=== PATIENT | female | born 1955 | race Caucasian/White ===

== ENCOUNTER 2020-01-21 08:25 | Inpatient (IN) ==
--- NOTE | 2019-12-18 14:32 | PAT Medication Instructions ---
Medication Instructions Date of Service December 18, 2019 Home Medications albuterol 90 mcg INHALATION QID PRN aspirin 81 mg PO QAM atorvastatin 40 mg PO QAM citalopram 40 mg PO QAM famotidine 40 mg PO QAM multivitamin 1 cap PO QAM ASK your prescriber and surgeon aspirin 81 mg PO QAM DO NOT take the morning of surgery multivitamin 1 cap PO QAM Take morning of surgery With a small sip of water, OTHERWISE NOTHING TO EAT OR DRINK AFTER MIDNIGHT: albuterol 90 mcg INHALATION QID PRN (use if needed; please bring with you to hospital day of surgery if possible) atorvastatin 40 mg PO QAM citalopram 40 mg PO QAM famotidine 40 mg PO QAM Take evening before surgery albuterol 90 mcg INHALATION QID PRN (if needed) Other Notes If you have any questions please call us at [phone] or [phone] or [phone] or [phone]
--- NOTE | 2019-12-19 12:58 | Anesthesiology Consultation ---
Date of Service December 19, 2019 Assessment & Plan (1) Encounter for pre-operative examination: - Patient scheduled to see cardiology prior to surgery. Awaiting cardiology office visit note and available cardiac testing (Dr. Joshi) - Per assessment on 12/18: Travel screen- Lives in [place]. Travel to [facility]. No known COVID-19 positive contacts or current COVID-19 related symptoms. Surgeon arranging preop COVID testing (at [facility]). Awaiting results. - ASA instructions per surgeon/prescriber. Chart Review Chart Review: Patient seen in Pre Admission Testing Teaching & Discussion Pre-Anesthesia Teaching/Discussion Notes: Instructed NPO after midnight before surgery,except medications with 15 cc of water. Medication instructions provid ed according to the PAT guidelines. History Surgery Operation Date: 01/21/20 11:20 Proposed Procedures p Left Reverse Total Shoulder Arthroplasty - Venkatesh Espinoza MD Height/Weight Height: 4 ft 11.75 in Weight: 113.3 kg Allergies Allergy/AdvReac Type Severity Reaction Status Date / Time No Known Allergies Allergy Verified 12/18/19 12:19 Medications Home Medications Medication Instructions Recorded Confirmed Last Taken albuterol 90 mcg INHALATION QID PRN 12/18/19 12/18/19 Unknown aspirin 81 mg PO QAM 12/18/19 12/18/19 Unknown atorvastatin 40 mg PO QAM 12/18/19 12/18/19 Unknown citalopram 40 mg PO QAM 12/18/19 12/18/19 Unknown famotidine 40 mg PO QAM 12/18/19 12/18/19 Unknown multivitamin 1 cap PO QAM 12/18/19 12/18/19 Unknown Past Medical History Medical History Asthma stable CAD (coronary artery disease) non-obstructive GERD (gastroesophageal reflux disease) controlled Hyperlipidemia Morbid obesity Osteoarthritis Sleep apnea CPAP Exercise / Class Metabolic Activity III < 4 Walking/Shop/Light housework Past Surgical History Surgical History History of cardiac cath 2018- no stents History of carpal tunnel release of both wrists History of knee replacement procedure of left knee History of knee replacement procedure of right knee Hx laparoscopic cholecystectomy Hx of colonoscopy Hx of hysterectomy Hx of rotator cuff surgery right Past Anesthesia History No Hx of Anesthesia Complications and No Family Hx of Anesthesia Complications History of PONV No Hx of PONV and No Hx of Motion Sickness Social History Smoking Status: Former smoker Do You Dip or Chew Tobacco: No Smoking End Date: Quit 20 years ago Hx Alcohol Use: No Hx Substance Use: No substance use type: does not use Review of Systems Patient denies chest pain, shortness of breath, fever, chills, cough, wheezing, palpitations. Physical Exam Vital Signs VITALS BP 128/79 P 65 TEMP 98.1 SP02 94%RA RESP 16 PHYSICAL Full neck and c-spine range of motion. Full TMJ range of motion. TMD 3.5 finger breaths Mallampati Score 2 Dentition: intact, + crowns (sides) Lungs: clear throughout to auscultation Cardiac: regular rate and rhythm, no murmurs noted Spine: normal Carotid arteries: negative bruit Extremities: no edema Short neck Testing Laboratory Results 12/19/19 13:10 12/19/19 13:10 PT 10.4 Seconds (9.0-12.0) 12/19/19 13:10 INR 1.0 (0.9-1.1) 12/19/19 13:10 APTT 27.2 Seconds (21.0-31.0) 12/19/19 13:10 Hemoglobin A1c 6.1 % (4.5-5.6) H 12/19/19 13:10 Urine Color Yellow 12/19/19 13:10 Urine Appearance Clear (Clear) 12/19/19 13:10 Urine pH 5.5 (4.5-7.5) 12/19/19 13:10 Ur Specific Leupp 1.018 (1.000-1.030) 12/19/19 13:10 Urine Protein Negative (Negative) 12/19/19 13:10 Urine Glucose (UA) Negative (Negative) 12/19/19 13:10 Urine Ketones Negative (Negative) 12/19/19 13:10 Urine Nitrite Negative (Negative) 12/19/19 13:10 Ur Leukocyte Esterase Trace (Negative) H 12/19/19 13:10 Urine WBC (Auto) 1-5 /hpf (0-5) 12/19/19 13:10 Urine RBC (Auto) 0-4 /hpf (0-4) 12/19/19 13:10 U Hyaline Cast (Auto) 0 /lpf (0-5) 12/19/19 13:10 U Epithel Cells (Auto) >30 /lpf (0-5) H 12/19/19 13:10 Urine Bacteria (Auto) Negative (Negative) 12/19/19 13:10 Blood Type O Positive 12/19/19 13:10 Antibody Screen NEGATIVE 12/19/19 13:10 Electrocardiogram Date: 12/19/19 NSR at 67bpm. Chest X-Ray Date: 12/19/19 FINDINGS: PA and lateral chest radiographs are obtained. No prior studies are available for comparison at the time of dictation. The cardiomediastinal silhouette is unremarkable. The lungs and pleural spaces are clear. There is no pneumothorax. The skeletal structures are osteopenic. The bony thorax appears intact. Degenerative change is noted in the thoracic spine. Cholecystectomy clips are seen in the right upper quadrant. IMPRESSION: No active disease in the chest.
--- NOTE | 2019-12-19 14:20 | XRay Report ---
TWO VIEW CHEST CLINICAL HISTORY: Preoperative examination. FINDINGS: PA and lateral chest radiographs are obtained. No prior studies are available for compariso n at the time of dictation. The cardiomediastinal silhouette is unremarkable. The lungs and pleural spaces are clear. There is no pneumothorax. The skeletal structures are osteopenic. The bony thorax appears intact. Degenerative change is noted in the thoracic spine. Cholecystectomy clips are seen in the right upper quadrant. IMPRESSION: No active disease in the chest. ACT 112: Negative or not required by law. Electronically signed by: Manoj Franco M.D. 12/19/2019 2:19 PM
--- NOTE | 2019-12-19 14:34 | Electrocardiogram Report ---
Test Reason : Blood Pressure : / mmHG Vent. Rate : 067 BPM Atrial Rate : 067 BPM P-R Int : 146 ms QRS Dur : 086 ms QT Int : 460 ms P-R-T Axes : 078 005 067 degrees QTc Int : 486 ms Normal sinus rhythm Normal ECG When compared with ECG of 18-MAY-2006 17:42, T wave amplitude has decreased in Lateral leads Confirmed by Seven Taylor ([id number]) on 12/19/2019 2:34:01 PM Referred By: Venkatesh Espinoza Confirmed By:Javier Taylor
[2019-12-19 15:21] LABS: Basophils # (auto) 0.02 K/uL (0-0.2); Basophils % (auto) 0.2 %; Eosinophils # (auto) 0.11 K/uL (0-0.5); Eosinophils % (auto) 1.2 %; Hematocrit (blood only) 41.5 % (37-47); Hemoglobin 13.4 g/dL (12.0-16.0); Immature Granulocytes # (auto) 0.01 K/uL (0.00-0.02); Immature Granulocytes % (auto) 0.1 %; Lymphocytes # (auto) 2.19 K/uL (1.2-3.4); Lymphocytes % (auto) 23.3 %; Mean Corpuscular Hemoglobin 27.9 pg (25-34); Mean Corpuscular Hgb Conc 32.3 g/dL (32-36); Mean Corpuscular Volume 86.5 fL (80-100); Mean Platelet Volume 11.7 fL (7.4-10.4); Monocytes # (auto) 0.33 K/uL (0.11-0.59); Monocytes % (auto) 3.5 %; Neutrophils # (auto) 6.74 K/uL (1.4-6.5); Neutrophils % (auto) 71.7 %; Platelet Count 256 K/uL (130-400); RDW Coefficient of Variation 14.1 % (11.5-14.5); RDW Standard Deviation 44.3 fL (36.4-46.3)
[2019-12-19 15:29] LABS: Appearance Urine Clear (Clear); Bacteria Urine Automated Negative (Negative); Bilirubin Urine Negative (Negative); Blood Urine Negative (Negative); Cast Urine Automated 0 /lpf (0-5); Color Urine Yellow; Epithelial Cell Urine Auto >30 /lpf (0-5); Glucose Urine UA Negative (Negative); Ketones Urine Negative (Negative); Leukocyte Esterase Urine Trace (Negative); Nitrite Urine Negative (Negative); Protein Urine Negative (Negative); RBC Urine Automated 0-4 /hpf (0-4); Specific Gravity Urine 1.018 (1.000-1.030); Urobilinogen Urine Negative (Negative); pH Urine 5.5 (4.5-7.5)
[2019-12-19 15:41] LABS: Partial Thromboplastin Time 27.2 Seconds (21.0-31.0); Prothrombin Time 10.4 Seconds (9.0-12.0)
[2019-12-19 16:12] LABS: Albumin Level 3.4 gm/dl (3.4-5.0); BUN Creatinine Ratio 18.5 (10-20); Calcium 8.9 mg/dl (8.5-10.1); Creatinine Clr Calc Pharmacy 80.9 ml/min; Est GFR (African American) 91.8; Est GFR (Non-African American) 79.2; Potassium 3.4 mmol/L (3.5-5.1)
[2019-12-20 05:46] LABS: Estimated Average Glucose 128 mg/dl; Hemoglobin A1C 6.1 % (4.5-5.6)
--- NOTE | 2020-01-20 20:52 | History and Physical Report ---
DATE OF ADMISSION: 01/21/2020 CHIEF COMPLAINT: Chronic left shoulder pain and weakness. HISTORY OF PRESENT ILLNESS: This is a 64-year-old female patient of Dr. Espinoza'duyen complaining of chronic left shoulder pain and weakness, longstanding, now progressively getting worse. The patient has failed conservative treatment and has been diagnosed with rotator cuff arthropathy. She has failed conservative treatment and wished to proceed with a left reverse total shoulder arthroplasty. PAST MEDICAL HISTORY: Hypercholesterolemia, irregular heartbeat, asthma, sleep apnea with the use of CPAP, osteoarthritis, acid reflux, hiatal hernia, obesity. SOCIAL HISTORY: Nonsmoker, nondrinker. FAMILY HISTORY: Noncontributory. REVIEW OF SYSTEMS: Chronic left shoulder pain and weakness. Otherwise, denies any shortness of breath, chest pain, nausea, vomiting or any other joint complaints. PAST SURGICAL HISTORY: Gallbladder, bilateral knee replacements, bilateral carpal tunnel, hysterectomy, right shoulder and heart catheterization. MEDICATIONS: 1. Multivitamin daily. 2. Citalopram 40 mg daily. 3. Famotidine 20 mg twice daily. 4. Atorvastatin 20 mg daily. 5. Aspirin 81 mg daily. ALLERGIES: No known drug allergies. PHYSICAL EXAMINATION: GENERAL: Well-developed, well-nourished 64-year-old female in no acute distress. She is alert and oriented x3 and pleasant. HEENT: Normocephalic, atraumatic. Extraocular motions are intact. Pupils are equal and reactive to light. HEART: Regular rate and rhythm, no murmurs. LUNGS: Clear. ABDOMEN: Soft, nontender, bowel sounds present. EXTREMITIES: Left shoulder has full range of motion with pain. She has crepitation. She has 4/5 strength. She has positive impingement maneuvering. Neurologically and neurovascularly, she is intact in her left upper extremity. DIAGNOSIS: Left rotator cuff arthropathy, hypertension, irregular heartbeat, asthma, sleep apnea with the use of CPAP, osteoarthritis, acid reflux, hiatal hernia, obesity. PLAN: The patient was advised of her diagnosis, indications, risks, benefits, post op course have all been reviewed The patient wished to proceed with a left reverse total shoulder arthroplasty. Necessary consent forms, preoperative testing and clearances will be obtained. [facility]
[~2020-01-21 08:25] MED LIST: ACETAMINOPHEN 500 MG TAB PO SCH; BUPIVACAINE/EPINEPHRINE 0.25% 1:200,000 30 ML VIAL ONE; CeleBREX 200 MG CAP PO SCH; DEXAMETHASONE SOD INJ 4 MG/ML VIAL ONE; FAMOTIDINE 20 MG TAB PO SCH; GABAPENTIN 300 MG CAP PO SCH; LIDOCAINE HCL 2% 2 ML VIAL/AMP(20MG/ML) INFIL ONE; LR 15ML/HR IV SCH; METOCLOPRAMIDE HCL 10 MG TABLET PO SCH; MIDAZOLAM HCL 1 MG/ML 2ML VIAL ONE; ONDANSETRON INJ 2 MG/ML 2 ML VIAL ONE; PROPOFOL IV EMULSION 10 MG/ML 20 ML VIAL IV ONE; ROCURONIUM BROMIDE 10 MG/ML 5 ML VIAL IV ONE; ceFAZolin 2000MG 2,000 MG/15 ML SYR IV SCH; dexAMETHasone 4 MG TAB PO SCH; fentaNYL citrate 100 MCG/2 ML VIAL ONE
--- OUTSIDE RECORDS SUMMARY | 2020-01-21 08:36 | External Medical Summary | Continuity of Care Document ---
:1955 Author Name Ron Campos Address Unavailable Unavailable , Care Team Providers Name Role Phone Soledad Campos Unavailable [email or web address] Active medical history not documented Allergies and Adverse Reactions Allergy history not documented Medications Medications not documented Procedures Procedures not documented Immunizations Immunizations not documented Plan of Treatment Planned Observations Planned Goals not documented Results No Known Results Results not documented
[2020-01-21] MEDS ORDERED: BACITRACIN INJ 50,000 UNIT VIAL ONE (09:28)
[2020-01-21] MEDS ORDERED: ePHEDrine sulfate 50 MG/ML AMP IV PRN (09:51)
[2020-01-21] MEDS ORDERED: ATROPINE SULFATE 0.1 MG/ML 10ML SYR IV PRN (09:51)
[2020-01-21] MEDS ORDERED: fentaNYL citrate 100 MCG/2 ML VIAL IV PRN (09:51)
[2020-01-21] MEDS ORDERED: HYDROmorphone INJ 2 MG/ML SYR/VIAL IV PRN (09:51)
[2020-01-21] MEDS ORDERED: ONDANSETRON INJ 2 MG/ML 2 ML VIAL IV PRN ×2 (09:51→14:47)
--- NOTE | 2020-01-21 10:14 | History & Physical Bridge Note ---
Date of Service January 21, 2020 History & Physical Bridge Note I have examined the patient, reviewed the History & Physical and in the interval since the performance of the History & Physical I have noted the following changes of clinical significance: no changes noted
[2020-01-21] MEDS ORDERED: GLYCOPYRROLATE 0.2 MG/ML VIAL ONE ×2 (12:31→13:06)
[2020-01-21] MEDS ORDERED: ePHEDrine sulfate 50 MG/ML SYR ONE (12:31)
[2020-01-21] MEDS ORDERED: NEOSTIGMINE METHYLSULFATE 5 MG/5 ML SYR ONE (12:31)
--- NOTE | 2020-01-21 13:10 | Operative Report ---
Post Operative Report Pre & Post Diagnosis Operation Date: 01/21/20 10:20 Pre-Op Diagnosis: Left Shoulder Rotator Cuff Arthropathy, Chronic Rotator Cuff Tear, morbid obesity BMI 47.7 Post-Op Diagnosis: Left Shoulder Rotator Cuff Arthropathy, Chronic Rotator Cuff Tear, biceps tendinopathy chronic biceps tenosynovitis, subscapularis tendinopathy chronic supraspinatus tendon tear, morbid obesity BMI 47.7 I identified the patient and participated in the time-out.: Yes Procedure Operation Date: 01/21/20 10:20 Actual Procedures p Left Reverse Total Shoulder Arthroplasty, Biceps Tenodesis(Left), increased difficulty morbid obesity BMI 47.7- Venkatesh Espinoza MD Surgeon Venkatesh Espinoza MD Plumber'S Assistant AMY Avery Estimated Blood Loss 175 Findings Consistent with Post-Op Diagnosis Specimens Humeral head Drains 2 Hemovac Anesthesia Type General Regional Complications none Disposition Accompanied Patient To Recovery: No Disposition: Recovery Room Indications 64-year-old female chronic left shoulder pain failed conservative management. MRI demonstrates large retracted rotator cuff tear supraspinatus supraspinatus with atrophy with subscapularis tendinopathy Description of Procedure The patient was taken to the operating room and anesthetized under regional block and general anesthetic. The patient was positioned on the operating table in a 30 beachchair position with a towel roll under the medial border of the left scapula. The arm was draped free to be able to manipulate the shoulder as needed. The left upper extremity was prepped and draped in usual sterile fashion. Exam demonstrated morbidly obese patient with obese arm excess of fat around the arm area. Range of motion 90 degrees abduction forward elevation 160 degrees and rotation 40 degrees external rotation 60 degrees. An anterior deltopectoral approach was performed. A longitudinal incision was made in the deltopectoral interval. The skin was incised sharply. Subcutaneous flaps were elevated off the fascia. The cephalic vein was dissected out and retracted lateral with the deltoid. The clavipectoral fascia was divided at the lateral margin of the conjoined tendon and extended up to the CA ligament. The following findings were noted: There was thinning of the subscapularis tendon but was still intact. There was a strand of damaged supraspinatus tendon tissue remaining and the remainder of the tendon was retracted medially. The infraspinatus tendon was still intact. There was chronic scarred subacromial bursa tissue overlying the tear. The scar tissue was resected. The biceps tendon sheath was opened up exposing the biceps tendon.. The upper centimeter of the pectoralis was released for inferior exposure. The biceps tendon findings demonstrated chronic tenosynovitis around the biceps tendon outside the joint but inside the joint the biceps tendon was markedly widened and had chronic tendinopathy and thinning and flattening of the tendon.. the biceps tendon was tenodesed to the pectoralis tendon with #2 FiberWire. The proximal biceps was resected. The subscapularis tendon was taken down off the lesser tuberosity using a subperiosteal dissection. A #1 Vicryl traction suture was placed into the free end of the subscapularis tendon and capsule. The subscapular muscle fibers were split longitudinally at the level of the circumflex vessels. The circumflex vessels were identified and tied off with silk ties and divided laterally. A Kitner elevator was used to free up the inferior fibers of the subscapularis off of the capsule. The axillary nerve was identified with a tug test and protected with a blunt Meka retractor between the nerve and the capsule. The subscapularis tendon was then taken down off of the lesser tuberosity subperiosteally and subperiosteal dissection was performed along the neck of the humerus as the arm is gradually externally rotated exposing the humeral head. The humeral head findings demonstrated minor osteoarthritic changes only and no significant osteophytes. retractors were readjusted and the inferior osteophytes were all resected using an artist chisel. A Hernandez elevator was used to assist in releasing the capsule of the neck of the humerus. The capsule was divided with Mckay scissors down to the glenoid released off the anterior glenoid and the rotator interval was released to meet the capsular release and a 360 release of the subscapularis was accomplished. A Fukuda retractor was placed into the joint retracting the humeral head posterior. Glenoid findings demonstrated large inferior glenoid osteophyte from anterior to posterior and some small superior osteophytes on the glenoid. There was still articular cartilage noted and mild osteoarthritic changes of the joint surface. The inferior osteophyte was resected with a rongeur. The labrum and biceps tendon was resected. an anterior-inferior and posterior inferior capsular release were performed with electrocautery and a Hernandez elevator on bone with the axillary nerve protected inferiorly by the retractor. Attention was then taken to the humeral preparation. The cutting guide was placed into the humeral head. It was positioned at 20 of retroversion. Oscillating saw was used to resect the humeral head giving the cut above the level of the posterior rotator cuff insertion site. The humerus was then prepared for the stem. I used the ascend flex stem from [facility]. The sizing broaches were used followed by trial broaches up to a size 3 standard which had the appropriate fit and fill. The appropriate sized cut protector was placed. The humerus was then retracted posterior to the glenoid. The glenoid was sized for a 25 baseplate. The guide for the baseplate was positioned in a 10 inferior tilt and the central drill hole was made. The reamer for the 25 baseplate was used. The central drill was widened for the peg. The 25 mm hydroxyapatite-coated aequalis baseplate was impacted into position. The base plate was transfixed with superior and inferior locking screws and anterior and posterior compression screws with stable fixation. The fan reamer was used for the 36 millimeter symmetrical glenoid sphere. After irrigation the 36 standard glenoid sphere was impacted onto the baseplate and the screw was tightened. Attention was taken back to the humerus. The cut protector was removed and the low offset humeral tray trial was assembled to the trial stem rotated appropriately to get bony coverage and then screwed in position. A trial reduction was performed. A 36+6 trial insert demonstrated good stability and no shuck. The trials were removed. 3 drill holes are made into the harder bone in the bicipital groove area and 3 #5 FiberWire sutures were placed transosseously. The canal was irrigated with antibiotic solution with bacitracin. The final component was assembled. The final component was 3B ascend flex standard stem with +0 low offset humeral tray and the 36+6 reversed polyethylene insert. This was then impacted into the humerus with a tight press-fit. It was reduced to the glenoid sphere. Stability was verified. Subscapularis was repaired with the #5 FiberWire sutures using Luis M-Zach suture technique. Lateral row soft tissue repair was performed with #2 FiberWire [id number] sutures. The pectoralis was repaired with #2 FiberWire [id number] sutures reinforcing the biceps tendon tenodesis. The arm was taken through a range of motion which demonstrated stable range of motion through 120 degrees forward elevation, 35 degrees external rotation and 100 degrees abduction. The implant was stable through the range of motion tested. The wound was copiously irrigated. 2 Hemovac drains w ere placed. The deltopectoral interval was closed with [id number] #1 Vicryl sutures. The subcutaneous tissues were closed with 2-0 Vicryl sutures. The skin was closed with lynn. Sterile dressings were applied and a shoulder immobilizer. There was an increased level difficulty due to morbid obesity BMI 47.7 adding 30 minutes to the length of time of the procedure. Raymond Meza my physician study assistant assisted in the procedure to the entire procedure including patient positioning arm positioning prepping and draping soft tissue retraction instrument management suture management and performed the subcutaneous and skin closure and will participate in the postoperative care of the patient. I attest to the content of the Intraoperative Record and any orders documented therein. Any exceptions are noted below.
--- NOTE | 2020-01-21 13:51 | XRay Report ---
XR shoulder LT min 2V routine CLINICAL HISTORY: Post shoulder surgery COMPARISON STUDY: None. FINDINGS: Status post reverse left total shoulder arthroplasty. The hardware appears intact. No fract ure or dislocation. Skin lynn and surgical drains are in place. IMPRESSION: Status post reverse left total shoulder arthroplasty. No evidence for hardware complicat ion. ACT 112: Negative or not required by law. Electronically signed by: Shayne Bartholomew M.D. 01/21/2020 1:49 PM
--- NOTE | 2020-01-21 14:02 | Anesthesiology Progress Note ---
Date of Service January 21, 2020 Anesthesia Post Procedure Vital Signs Vital Signs: Temp Pulse Resp BP BP Pulse Ox 01/21/20 14:00 67 18 113/64 96 01/21/20 13:50 70 17 117/64 94 01/21/20 13:40 67 19 118/64 96 01/21/20 13:30 36.6 C 68 24 120/65 95 01/21/20 13:20 74 22 111/58 L 95 01/21/20 13:10 73 20 114/54 L 96 01/21/20 13:04 36.4 C L 83 16 120/56 L 96 01/21/20 09:32 36.5 C 57 L 16 135/93 98 01/21/20 09:15 36.6 C 59 L 16 138/70 96 Pain Intensity Left Shoulder: Pain Intensity: 3 Transfer of Care Handoff Completed per policy Notes Mental Status: alert / awake / arousable and participated in evaluation Patient Amnestic to Procedure: Yes Nausea / Vomiting: adequately controlled Pain: adequately controlled Airway Patency, RR, SpO2: stable & adequate BP & HR: stable & adequate Hydration State: stable & adequate Anesthetic Complications: no major complications apparent and Pt Satisfied with anesthetic care
--- NOTE | 2020-01-21 14:38 | Hospitalist Consultation ---
Date of Consultation January 21, 2020 Assessment & Plan (1) Rotator cuff tear arthropathy of left shoulder: pain control, activity level and discharge planning per ortho will check labs in the AM doing well post op, encouraged her to use incentive spirometer (2) CAD (coronary artery disease): h/o non-obstructive disease, no history of coronary stents no chest pain post op (3) Asthma: lungs clear, no distress (4) GERD (gastroesophageal reflux disease): no current symptoms (5) Sleep apnea: CPAP at night History of Present Illness Reason for Consultation: medical management Requesting Physician: Dr. Espinoza Attending Physician: Venkatesh Espinoza MD History of Present Illness 64 yo female with history of CAD, obesity, GERD, ABHISHEK who presents after having left rotator cuff surgery. Pain is well controlled. She is eating well, no nausea. She denies chest pain, dyspnea, fever/chills. Reviewed notes, she had cardiac clearance with cardiology in [facility]. H/o [facility] a few years ago, non-obstructive disease was found, no history of stents. She was doing well medically prior to surgery, all of her issues were well managed. She is hoping to go home on 01/22/20. Allergies Allergy/AdvReac Type Severity Reaction Status Date / Time No Known Allergies Allergy Verified 12/18/19 12:19 Home Medications Home Medications Medication Instructions Recorded Confirmed Type albuterol 90 mcg INHALATION QID PRN 12/18/19 12/18/19 History aspirin 81 mg PO QAM 12/18/19 01/21/20 History atorvastatin 40 mg PO QAM 12/18/19 01/21/20 History citalopram 40 mg PO QAM 12/18/19 01/21/20 History famotidine 40 mg PO QAM 12/18/19 01/21/20 History multivitamin 1 cap PO QAM 12/18/19 01/21/20 History acetaminophen 1,000 mg PO Q8 30 Days #180 tab 01/22/20 Rx oxycodone 5 mg PO Q4H PRN #30 tab 01/22/20 Rx Patient History Medical History Asthma stable CAD (coronary artery disease) non-obstructive GERD (gastroesophageal reflux disease) controlled Hyperlipidemia Morbid obesity Osteoarthritis Sleep apnea CPAP Surgical History History of cardiac cath 2019- no stents History of carpal tunnel release of both wrists History of knee replacement procedure of left knee History of knee replacement procedure of right knee Hx laparoscopic cholecystectomy Hx of colonoscopy Hx of hysterectomy Hx of rotator cuff surgery right Social History Smoking Status: Former smoker Smoking End Date: Quit 20 years ago; Second Hand Exposure: No; Do You Dip or Chew Tobacco: No; Tobacco Cessation Education Requested by Patient: No Hx Alcohol Use: No Hx Substance Use: No Preferred Language: Nicaraguan Communication Ability: Effective Valet Parker Required: No Beliefs That Will Affect Care: None marital status: Single Current Living Situation: Alone Other Information That Helps Us Care for You: No Feels Safe at Home: Yes Safety Concerns: Feels Safe At This Time Assistive Devices: Glasses Review of Systems Review of Systems: All systems reviewed & are unremarkable except as noted in Subjective Musculoskeletal: + joint pain (left shoulder) Physical Exam Constitutional: well developed and + obese; no acute distress Neck: trachea midline, no thyromegaly Respiratory: normal respiratory effort, lungs clear to auscultation Cardiovascular: RRR, no murmur, no edema Gastrointestinal (Abdomen): normal bowel sounds, soft, nontender, no hepatosplenomegaly Musculoskeletal: Head/Neck/Chest: normocephalic, head atraumatic and neck supple Extremities: strength 5/5 throughout; + extremities abnormal to inspection (left shoulder/arm in immobilizer, drain in place), no muscle atrophy, no cyanosis and no clubbing Skin: no rashes, warm and dry Neurologic: patellar DTR's 2+ bilat, sensation intact and PERRL, EOMI, accommodation nl, no face palsy, no dysarthria Psychiatric: A+Ox3, euthymic affect Lymphatic: no cervical or axillary lymphadenopathy Results & Data Results & Data ([facility]) Vital Signs (Past 12 Hours) Vital Signs Temp Pulse Pulse Resp BP BP Pulse Ox 01/21/20 14:15 36.9 C 66 14 119/67 97 01/21/20 14:00 67 18 113/64 96 01/21/20 13:50 70 17 117/64 94 01/21/20 13:40 67 19 118/64 96 01/21/20 13:30 36.6 C 68 24 120/65 95 01/21/20 13:20 74 22 111/58 L 95 01/21/20 13:10 73 20 114/54 L 96 01/21/20 13:04 36.4 C L 83 16 120/56 L 96 01/21/20 09:32 36.5 C 57 L 16 135/93 98 01/21/20 09:15 36.6 C 59 L 16 138/70 96 PG Care Time/CCT Total # of Minutes Spent Total Time Spent with Patient: Total time spent is greater than 50% in coordination of care (as documented) at patient's floor/unit and/or counseling patient: Coding Level of Care Code 65012 Inpt Consult Level 3 Diagnoses Rotator cuff tear arthropathy of left shoulder M75.102; M12.812 CAD (coronary artery disease) I25.10 Asthma J45.909 GERD (gastroesophageal reflux disease) K21.9 Sleep apnea G47.30
[2020-01-21] MEDS ORDERED: MAGNESIUM HYDROXIDE SUSP 30 ML UDC PO PRN (14:47)
[2020-01-21] MEDS ORDERED: NALOXONE HCL 0.4 MG/1 ML VIAL/CARP IV PRN (14:47)
[2020-01-21] MEDS ORDERED: diphenhydrAMINE Capsule 25 MG CAP PO PRN (14:47)
[2020-01-21] MEDS ORDERED: HYDROmorphone INJ 0.5 MG/0.5 ML SYR IV PRN (14:47)
[2020-01-21] MEDS ORDERED: bisacodyL 10 MG SUPP PR PRN (14:47)
[2020-01-21] MEDS ORDERED: ALBUTEROL HFA INHALER 8.5 GM INH PRN (15:03)
[2020-01-21] MEDS ORDERED: INFLUENZA ADMINISTRATION CHARGE ONE (16:00)
[2020-01-21] MEDS ORDERED: INFLUENZA VIRUS QUAD VACCINE 0.5 ML SYR IM ONE (16:00)
[2020-01-21] MEDS: SODIUM CHLORIDE 0.9% 1000ML 1,000 ML IV SCH ×2 (16:10→17:12)
[2020-01-21] MEDS: ACETAMINOPHEN 500 MG TAB PO SCH ×2 (16:11→21:57)
[2020-01-21] MEDS: ceFAZolin 2000MG 2,000 MG/15 ML SYR IV SCH (18:14)
[2020-01-21] MEDS ORDERED: SENNA 8.6 MG TAB PO SCH (21:00)
[2020-01-21] MEDS: DOCUSATE SODIUM 100 MG CAP PO SCH (21:58)
[2020-01-21] MEDS: FAMOTIDINE 40 MG TABLET PO SCH (21:59)
[2020-01-22] MEDS: ceFAZolin 2000MG 2,000 MG/15 ML SYR IV SCH (01:56)
[2020-01-22] MEDS: ACETAMINOPHEN 500 MG TAB PO SCH ×2 (05:42→14:00)
[2020-01-22 06:12] LABS: Basophils # (auto) 0.01 K/uL (0-0.2); Basophils % (auto) 0.1 %; Eosinophils # (auto) 0.02 K/uL (0-0.5); Eosinophils % (auto) 0.2 %; Hematocrit (blood only) 34.1 % (37-47); Hemoglobin 10.6 g/dL (12.0-16.0); Immature Granulocytes # (auto) 0.03 K/uL (0.00-0.02); Immature Granulocytes % (auto) 0.3 %; Lymphocytes # (auto) 1.74 K/uL (1.2-3.4); Lymphocytes % (auto) 15.2 %; Mean Corpuscular Hemoglobin 27.4 pg (25-34); Mean Corpuscular Hgb Conc 31.1 g/dL (32-36); Mean Corpuscular Volume 88.1 fL (80-100); Mean Platelet Volume 11.2 fL (7.4-10.4); Monocytes # (auto) 1.02 K/uL (0.11-0.59); Monocytes % (auto) 8.9 %; Neutrophils # (auto) 8.63 K/uL (1.4-6.5); Neutrophils % (auto) 75.3 %; Platelet Count 233 K/uL (130-400); RDW Coefficient of Variation 14.2 % (11.5-14.5); RDW Standard Deviation 45.9 fL (36.4-46.3); Red Blood Count 3.87 M/uL (4.2-5.4); White Blood Count 11.45 K/uL (4.8-10.8)
[2020-01-22 06:36] LABS: Calcium 8.1 mg/dl (8.5-10.1); Creatinine Clr Calc Pharmacy 92.5 ml/min; Est GFR (African American) 106.2; Est GFR (Non-African American) 91.6; Potassium 3.9 mmol/L (3.5-5.1)
[2020-01-22] MEDS: DOCUSATE SODIUM 100 MG CAP PO SCH (08:53)
[2020-01-22] MEDS ORDERED: ATORVASTATIN 40 MG TAB PO SCH (09:00)
[2020-01-22] MEDS ORDERED: CITALOPRAM 40 MG TAB PO SCH (09:00)
[2020-01-22] MEDS ORDERED: MULTIVITAMIN TAB PO SCH (09:00)
[2020-01-22] MEDS ORDERED: ASPIRIN 81 MG ECTAB PO SCH (09:00)
[2020-01-22] MEDS ORDERED: NON-FORMULARY MEDICATION (Multivitamin 1 CAP) PO SCH (09:00)
--- NOTE | 2020-01-22 09:09 | Orthopedic Progress Note ---
Date of Service January 22, 2020 Assessment & Plan (1) Rotator cuff tear arthropathy of left shoulder: POD #1, Left reversed TSA, Biceps tenodesis Limited HEP only, NO PT. DVT proph- ASA D/C plans Home w HEP today after 1500 if pain controlled on orals. Admission and Anticipated Discharge Date Admission Date: January 21, 2020 Subjective POD #1, Doing well. Denies SOB, CP, N/V, Dizziness. Pain controlled well. Physical Exam Physical Exam: Left shoulder dressings c/d/i, no drainage. Fingers mobile. Sling in tact. A&Ox3. VSS Results & Data ([facility]) Vital Signs (Past 12 Hours) Vital Signs Temp Pulse Resp BP Pulse Ox 01/22/20 07:56 36.5 C 57 L 16 143/83 H 96 01/22/20 02:50 36.8 C 67 16 122/68 94 01/21/20 23:27 37.1 C 63 16 119/66 93
[2020-01-22] MEDS: FAMOTIDINE 40 MG TABLET PO SCH (09:30)
[2020-01-22] MEDS: oxyCODONE HCL IR 5 MG TAB (IMMEDIATE RELEASE) PO PRN ×2 (11:28→14:00)
--- NOTE | 2020-01-22 22:02 | Hospitalist Progress Note ---
Date of Service January 22, 2020 Assessment & Plan (1) Rotator cuff tear arthropathy of left shoulder: pain control, activity level and discharge planning per ortho labs stable today breathing well on room air vitals stable clear for discharge from medical perspective (2) CAD (coronary artery disease): h/o non-obstructive disease, no history of coronary stents no chest pain post op (3) Asthma: lungs clear, no distress (4) GERD (gastroesophageal reflux disease): no current symptoms (5) Sleep apnea: CPAP at night Admission and Anticipated Discharge Date Admission Date: January 21, 2020 Subjective patient doing well, pain is well controlled with oxycodone eating well, no chest pain, no dyspnea, no fever labs today show a drop in Hb to 10.6, BMP shows stable Cr and electrolytes ortho plans for discharge later today if pain is controlled Review of Systems Review of Systems: All systems reviewed & are unremarkable except as noted in Subjective Musculoskeletal: + joint pain (left shoulder, moderate) Physical Exam Constitutional: well developed and + obese; no acute distress Neck: trachea midline, no thyromegaly Respiratory: normal respiratory effort, lungs clear to auscultation Cardiovascular: RRR, no murmur, no edema Gastrointestinal (Abdomen): normal bowel sounds, soft, nontender, no hepatosplenomegaly Musculoskeletal: Head/Neck/Chest: normocephalic, head atraumatic and neck supple Extremities: strength 5/5 throughout; + extremities abnormal to inspection (left shoulder/arm in immobilizer, drain in place), no muscle atrophy, no cyanosis and no clubbing Skin: no rashes, warm and dry Neurologic: patellar DTR's 2+ bilat, sensation intact and PERRL, EOMI, accommodation nl, no face palsy, no dysarthria Psychiatric: A+Ox3, euthymic affect Lymphatic: no cervical or axillary lymphadenopathy Results & Data Results & Data ([facility]) Vital Signs (Past 12 Hours) Vital Signs Temp Pulse Pulse Resp BP Pulse Ox 01/22/20 12:20 36.7 C 67 68 18 125/71 96 01/22/20 11:13 36.7 C 68 18 125/71 96 Laboratory Results Laboratory Results - last 24 hr 01/22/20 01/22/20 05:16 05:16 WBC 11.45 H RBC 3.87 L Hgb 10.6 L Hct 34.1 L MCV 88.1 MCH 27.4 MCHC 31.1 L RDW Std Deviation 45.9 RDW Coeff of Mery 14.2 Plt Count 233 MPV 11.2 H Immature Gran % (Auto) 0.3 Neut % (Auto) 75.3 Lymph % (Auto) 15.2 [place] % (Auto) 8.9 Eos % (Auto) 0.2 Baso % (Auto) 0.1 Neut # (Auto) 8.63 H Lymph # (Auto) 1.74 [place] # (Auto) 1.02 H Eos # (Auto) 0.02 Baso # (Auto) 0.01 Immature Gran # (Auto) 0.03 H Sodium 143 Potassium 3.9 Chloride 112 H Carbon Dioxide 27 Anion Gap 4.0 BUN 11 Creatinine 0.67 Est Cr Clr Drug Dosing 92.5 Est GFR ( Amer) 106.2 Est GFR (Non-Af Amer) 91.6 BUN/Creatinine Ratio 17.0 Glucose 108 H Calcium 8.1 L PG Care Time/CCT Total # of Minutes Spent Total Time Spent with Patient: Total time spent is greater than 50% in coordination of care (as documented) at patient's floor/unit and/or counseling patient: Coding Level of Care Code 70069 Subseq Hosp Care Lvl 2 Diagnoses Rotator cuff tear arthropathy of left shoulder M75.102; M12.812 CAD (coronary artery disease) I25.10 Asthma J45.909 GERD (gastroesophageal reflux disease) K21.9 Sleep apnea G47.30
== END 2020-01-22 17:42 | disposition home or self-care (01) | DRG 483 ==
LOC: ASU 08:25 → 3E 13:25